=== PATIENT | male | born 1995 | race Caucasian/White ===

== ENCOUNTER 2017-02-21 20:18 | Emergency (ER) | payer BC ==
[~2017-02-21] VITALS: Ht 180.3 cm; Wt 145.1 kg
[2017-02-21 20:28] VITALS: BP_SYST 131
--- NOTE | 2017-02-21 20:44 | NUR ---
Patient to [facility]. Report given to Kenyatta ROBERTS.
--- NOTE | 2017-02-21 20:50 | NUR ---
Pt came into the ER in stable condition. Pt c/o cough x3 wks. Pt denies fever. Pt stated that he has been taking OTC meds but they have been ineffective. +congestion +productive cough -SOB. No acute distress noted at this time, will continue to monitor
[2017-02-21] MEDS ORDERED: LevALBUTEROL HCL 1.25 MG/0.5 ML *CONC.* VIAL.NEB (XOPENEX CONC.) INH ONE (21:00)
[2017-02-21 21:13] VITALS: BP_SYST 131
== END 2017-02-21 21:13 | disposition home or self-care (01) ==
LOC: SED 20:18
DX: J20.9 Acute bronchitis, unspecified (principal); R03.0 Elevated blood-pressure reading, without diagnosis of hypertension; J45.909 Unspecified asthma, uncomplicated
CPT/HCPCS: 99283

== ENCOUNTER 2017-08-12 21:47 | Emergency (ER) | payer BC ==
[~2017-08-12] VITALS: Ht 177.8 cm; Wt 145.1 kg
[2017-08-12 21:47] VITALS: BP_SYST 138
--- NOTE | 2017-08-12 21:47 | NUR ---
Patient to ER bed 5 to gown for evaluation. Side rails up. Report given to Izzy ROBERTS.
--- NOTE | 2017-08-12 22:30 | NUR ---
ER MD Gabriel at bedside examining patient.
--- NOTE | 2017-08-12 22:30 | NUR ---
Amanda stephenson in [facility] - 08/12/17 at 2308 by SDNABEL ISAAC Gabriel at bedside examining patient.
[2017-08-12] MEDS ORDERED: AMOXICILLIN/CLAVULANATE POTASSIUM 500 MG TABLET PO ONE (22:45)
[2017-08-12] MEDS ORDERED: DIPH-TET-PERTUS Vaccine 0.5 ML VIAL (ADACEL) I.M. ONE (22:45)
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
[2017-08-13 00:22] VITALS: BP_SYST 135
--- NOTE | 2017-08-13 00:22 | NUR ---
Patient given written and verbal discharge instructions and verbalizes understanding. ER MD discussed with patient the results and treatment provided. Patient in stable condition. ID arm band removed. Rx of Augmentin 875 mg given. Patient educated on pain management and to follow up with PMD. Pain Scale 0/10. Opportunity for questions provided and answered.
== END 2017-08-13 00:22 | disposition home or self-care (01) ==
LOC: SED 21:47
DX: S51.852A Open bite of left forearm, initial encounter (principal); R03.0 Elevated blood-pressure reading, without diagnosis of hypertension; J45.909 Unspecified asthma, uncomplicated; Z91.018 Allergy to other foods; W50.3XXA Accidental bite by another person, initial encounter; Y93.89 Activity, other specified; Y92.513 Shop (commercial) as the place of occurrence of the external cause; Y99.8 Other external cause status
CPT/HCPCS: 90715; 99284

== ENCOUNTER 2018-11-20 07:26 | Inpatient (IN) | payer BC ==
[~2018-11-20] VITALS: Ht 177.8 cm; Wt 170.6 kg
[2018-11-20 07:39] VITALS: BP_SYST 100
[2018-11-20] MEDS ORDERED: LevALBUTEROL HCL 1.25 MG/0.5 ML *CONC.* VIAL.NEB (XOPENEX CONC.) INH ONE ×2 (07:45→07:46)
[2018-11-20] MEDS ORDERED: NS 1000 ML IV.SOLN IV ONE (07:45)
[2018-11-20] MEDS ORDERED: IPRATROPIUM BROM 0.5 MG/2.5 ML VIAL.NEB (ATROVENT) IH ONE (07:45)
[2018-11-20] MEDS ORDERED: IPRATROPIUM BROM 0.5 MG/2.5 ML VIAL.NEB (ATROVENT) INH ONE (07:46)
[2018-11-20 08:03] LABS: BASOPHILS # (AUTO) 0.1 K/uL (0.0-0.2); BASOPHILS % (AUTO) 0.9 % (0.0-2.0); EOSINOPHILS # (AUTO) 0.3 K/uL (0.0-0.4); EOSINOPHILS % (AUTO) 1.8 % (0.0-4.0); LYMPHOCYTES # (AUTO) 0.6 K/uL (1.0-5.5); LYMPHOCYTES % (AUTO) 4.1 % (20.5-51.5); MONOCYTES # (AUTO) 1.1 K/uL (0.0-1.0); MONOCYTES % (AUTO) 7.4 % (1.7-9.3); NEUTROPHILS # (AUTO) 13.4 K/uL (1.8-7.7); NEUTROPHILS % (AUTO) 85.8 % (40.0-70.0); RED CELL DISTRIBUTION WIDTH 14.2 % (9.0-15.0)
[2018-11-20 08:19] LABS: WHITE BLOOD COUNT (AUTO) 15.5 K/uL (4.8-10.8)
[2018-11-20 08:24] LABS: CALCIUM 8.4 mg/dL (8.4-11.0); CREATININE 0.92 mg/dL (0.55-1.30); POTASSIUM 3.9 mmol/L (3.5-5.1)
[2018-11-20 08:30] LABS: ALBUMIN 3.3 g/dL (3.4-4.8); TOTAL BILIRUBIN 0.7 mg/dL (0.0-1.0)
[2018-11-20 08:39] LABS: PROTHROMBIN TIME 10.4 SECS (9.5-12.5)
[2018-11-20] MEDS ORDERED: cefTRIAXone 2 GM VIAL ONE ×2 (10:02→10:05)
[2018-11-20] MEDS ORDERED: DIPHENHYDRAMINE INJ 50 MG/ML VIAL IVP ONE (10:45)
[2018-11-20] MEDS ORDERED: VANCOMYCIN HCL 1,000 MG in NS 250 ML IV ONE (10:45)
[2018-11-20] MEDS ORDERED: BECL10.62 IH (10:55)
[2018-11-20] MEDS ORDERED: ALBMDI INH (10:55)
[2018-11-20] MEDS ORDERED: VANCOMYCIN HCL 1000 MG/VIAL IV ONE (11:04)
[2018-11-20 12:25] VITALS: BP_SYST 128
[2018-11-20] MEDS: ACETAMINOPHEN 325 MG TABLET PO PRN (13:08)
[2018-11-20] MEDS ORDERED: ACETAMINOPHEN 325 MG TABLET ONE (13:12)
[2018-11-20] MEDS ORDERED: NACL 0.9% 1,000 ML IV ONE (13:45)
[2018-11-20] MEDS ORDERED: NS 500 ML IV ONE (13:45)
[2018-11-20] MEDS ORDERED: AZITHROMYCIN 500 MG in NS 250 ML IV ONE (14:00)
[2018-11-20] MEDS ORDERED: DIPHENHYDRAMINE INJ 50 MG/ML VIAL IVP PRN (14:30)
[2018-11-20] MEDS ORDERED: methylPREDNISolone SOD SUCC/PF 62.5 MG/ML VIAL IVP ONE (14:30)
[2018-11-20 16:40] VITALS: BP_SYST 137
[2018-11-20] MEDS: IPRATROPIUM BROM 0.5 MG/2.5 ML VIAL.NEB (ATROVENT) INH SCH (19:23)
[2018-11-20] MEDS: ALBUTEROL SULFATE 0.083% 2.5 MG/3 ML VIAL.NEB INH SCH (19:23)
[2018-11-20 20:00] VITALS: BP_SYST 141
[2018-11-20 23:45] VITALS: BP_SYST 132
[2018-11-21] MEDS: IPRATROPIUM BROM 0.5 MG/2.5 ML VIAL.NEB (ATROVENT) INH SCH ×4 (01:12→16:35)
[2018-11-21] MEDS: ALBUTEROL SULFATE 0.083% 2.5 MG/3 ML VIAL.NEB INH SCH ×4 (01:12→16:34)
[2018-11-21 06:55] LABS: MONOCYTES # (AUTO) 1.1 K/uL (0.0-1.0)
[2018-11-21 07:20] LABS: ALBUMIN 2.9 g/dL (3.4-4.8); CALCIUM 8.5 mg/dL (8.4-11.0); CREATININE 0.76 mg/dL (0.55-1.30); POTASSIUM 3.9 mmol/L (3.5-5.1); THYROID STIMULATING HORMONE 0.13 uIu/mL (0.34-4.82); TOTAL BILIRUBIN 0.5 mg/dL (0.0-1.0)
[2018-11-21 07:58] VITALS: BP_SYST 102
[2018-11-21] MEDS: AZITHROMYCIN 500 MG in NS 250 ML IV SCH (08:49)
[2018-11-21 08:52] LABS: BASOPHILS % (AUTO) 0.1 % (0.0-2.0); EOSINOPHILS % (AUTO) 0.1 % (0.0-4.0); HEMATOCRIT 40.1 % (36-54); HEMOGLOBIN 12.9 g/dL (14.0-18.0); LYMPHOCYTES # (AUTO) 0.5 K/uL (1.0-5.5); LYMPHOCYTES % (AUTO) 3.7 % (20.5-51.5); MEAN CORPUSCULAR HEMOGLOBIN 27 pg (27-31); MEAN CORPUSCULAR HGB CONC 32 % (32-36); MEAN CORPUSCULAR VOLUME 83 fL (79.0-98.0); MONOCYTES % (AUTO) 7.7 % (1.7-9.3); NEUTROPHILS # (AUTO) 12.9 K/uL (1.8-7.7); NEUTROPHILS % (AUTO) 88.4 % (40.0-70.0); PLATELET COUNT (AUTO) 271 K/uL (130-430); RED BLOOD CELL COUNT(AUTO) 4.84 MIL/uL (4.2-6.2); RED CELL DISTRIBUTION WIDTH 14.3 % (9.0-15.0); WHITE BLOOD COUNT (AUTO) 14.5 K/uL (4.8-10.8)
[2018-11-21 10:46] LABS: HEMATOCRIT 46.1 % (36-54); HEMOGLOBIN 14.6 g/dL (14.0-18.0); MEAN CORPUSCULAR VOLUME 86 fL (79.0-98.0); RED BLOOD CELL COUNT(AUTO) 5.37 MIL/uL (4.2-6.2)
[2018-11-21 10:47] LABS: MEAN CORPUSCULAR HEMOGLOBIN 27 pg (27-31); MEAN CORPUSCULAR HGB CONC 32 % (32-36); PLATELET COUNT (AUTO) 307 K/uL (130-430)
[2018-11-21 10:52] VITALS: BP_SYST 114
[2018-11-21] MEDS: LEVOFLOXACIN 500 MG/D5W 100 ML IV SCH (11:05)
[2018-11-21] MEDS: ACETAMINOPHEN 325 MG TABLET PO PRN ×2 (11:05→17:42)
[2018-11-21] MEDS ORDERED: NS 1000 ML IV.SOLN IV ONE (15:00)
[2018-11-21] MEDS ORDERED: PREDNISONE 20 MG TABLET PO ONE (15:15)
[2018-11-21 16:19] VITALS: BP_SYST 124
[2018-11-21] MEDS: BUDESONIDE 0.5 MG/2 ML AMPUL.NEB INH SCH ×2 (16:23→19:56)
[2018-11-21] MEDS: IPRATROPIUM BROM 0.5 MG/2.5 ML VIAL.NEB (ATROVENT) INH PRN (19:55)
[2018-11-21] MEDS: ALBUTEROL SULFATE 0.083% 2.5 MG/3 ML VIAL.NEB INH PRN (19:56)
[2018-11-21 20:24] VITALS: BP_SYST 106
[2018-11-21 23:37] VITALS: BP_SYST 116
[2018-11-22] MEDS: ALBUTEROL SULFATE 0.083% 2.5 MG/3 ML VIAL.NEB INH SCH ×4 (01:55→19:00)
[2018-11-22] MEDS: IPRATROPIUM BROM 0.5 MG/2.5 ML VIAL.NEB (ATROVENT) INH SCH ×4 (01:55→19:00)
[2018-11-22] MEDS: BUDESONIDE 0.5 MG/2 ML AMPUL.NEB INH SCH ×2 (06:12→22:01)
[2018-11-22 07:00] LABS: CALCIUM 8.4 mg/dL (8.4-11.0); CREATININE 0.83 mg/dL (0.55-1.30); POTASSIUM 3.6 mmol/L (3.5-5.1)
[2018-11-22 07:18] LABS: ALBUMIN 2.7 g/dL (3.4-4.8); TOTAL BILIRUBIN 0.5 mg/dL (0.0-1.0)
[2018-11-22 07:51] VITALS: BP_SYST 106
[2018-11-22 08:36] LABS: HEMATOCRIT 37.4 % (36-54); HEMOGLOBIN 12.2 g/dL (14.0-18.0); MEAN CORPUSCULAR HEMOGLOBIN 27 pg (27-31); MEAN CORPUSCULAR HGB CONC 33 % (32-36); MEAN CORPUSCULAR VOLUME 83 fL (79.0-98.0); PLATELET COUNT (AUTO) 214 K/uL (130-430); RED CELL DISTRIBUTION WIDTH 15.2 % (9.0-15.0)
[2018-11-22] MEDS: PREDNISONE 20 MG TABLET PO SCH (08:39)
[2018-11-22] MEDS: AZITHROMYCIN 500 MG in NS 250 ML IV SCH (08:40)
[2018-11-22] MEDS: LEVOFLOXACIN 500 MG/D5W 100 ML IV SCH (09:35)
[2018-11-22 09:39] LABS: BASOPHILS % (MANUAL) 0 % (0-2); EOSINOPHILS % (MANUAL) 0 % (0-7); LYMPHOCYTES % (MANUAL) 11 % (20-46); MONOCYTES % (MANUAL) 7 % (0-11)
[2018-11-22] MEDS: ACETAMINOPHEN 325 MG TABLET PO PRN ×2 (10:07→20:26)
[2018-11-22 12:48] VITALS: BP_SYST 105
[2018-11-22 17:21] VITALS: BP_SYST 93
[2018-11-22] MEDS: ALBUTEROL SULFATE 0.083% 2.5 MG/3 ML VIAL.NEB INH PRN ×2 (18:07→22:01)
[2018-11-22] MEDS: IPRATROPIUM BROM 0.5 MG/2.5 ML VIAL.NEB (ATROVENT) INH PRN ×2 (18:07→22:01)
[2018-11-22 20:20] VITALS: BP_SYST 117
[2018-11-22] MEDS: PROMETHAZINE-DM 6.25 MG-15 MG/5 ML UDC PO PRN (20:26)
[2018-11-22 23:56] VITALS: BP_SYST 108
[2018-11-23] VITALS: BP_SYST 131
[2018-11-23 01:16] VITALS: BP_SYST 104
[2018-11-23] MEDS: ALBUTEROL SULFATE 0.083% 2.5 MG/3 ML VIAL.NEB INH SCH ×4 (01:37→19:58)
[2018-11-23] MEDS: IPRATROPIUM BROM 0.5 MG/2.5 ML VIAL.NEB (ATROVENT) INH SCH ×4 (01:38→19:58)
[2018-11-23] MEDS: ALBUTEROL SULFATE 0.083% 2.5 MG/3 ML VIAL.NEB INH PRN (03:41)
[2018-11-23] MEDS: IPRATROPIUM BROM 0.5 MG/2.5 ML VIAL.NEB (ATROVENT) INH PRN (03:41)
[2018-11-23] MEDS: PROMETHAZINE-DM 6.25 MG-15 MG/5 ML UDC PO PRN (03:43)
[2018-11-23] MEDS: ACETAMINOPHEN 325 MG TABLET PO PRN (06:33)
[2018-11-23 07:30] VITALS: BP_SYST 112
[2018-11-23] MEDS: BUDESONIDE 0.5 MG/2 ML AMPUL.NEB INH SCH ×2 (07:34→19:58)
[2018-11-23] MEDS: LEVOFLOXACIN 500 MG/D5W 100 ML IV SCH (08:38)
[2018-11-23] MEDS: PREDNISONE 20 MG TABLET PO SCH (08:38)
[2018-11-23] MEDS ORDERED: methylPREDNISolone SOD SUCC 40 MG/ML VIAL IVP ONE (09:15)
[2018-11-23 11:07] VITALS: BP_SYST 119
[2018-11-23 16:49] VITALS: BP_SYST 123
[2018-11-23] MEDS: MONTELUKAST 10 MG TABLET PO SCH (16:58)
[2018-11-23] MEDS: methylPREDNISolone SOD SUCC 40 MG/ML VIAL IVP SCH (16:59)
[2018-11-23 20:12] VITALS: BP_SYST 103
[2018-11-24 00:30] VITALS: BP_SYST 131
[2018-11-24] MEDS: ALBUTEROL SULFATE 0.083% 2.5 MG/3 ML VIAL.NEB INH SCH ×4 (03:05→19:35)
[2018-11-24] MEDS: IPRATROPIUM BROM 0.5 MG/2.5 ML VIAL.NEB (ATROVENT) INH SCH ×4 (03:05→19:35)
[2018-11-24] MEDS: methylPREDNISolone SOD SUCC 40 MG/ML VIAL IVP SCH ×2 (06:13→18:05)
[2018-11-24 08:00] VITALS: BP_SYST 114
[2018-11-24] MEDS: BUDESONIDE 0.5 MG/2 ML AMPUL.NEB INH SCH ×2 (08:12→19:35)
[2018-11-24] MEDS: LEVOFLOXACIN 500 MG/D5W 100 ML IV SCH (08:41)
[2018-11-24 12:38] VITALS: BP_SYST 124
[2018-11-24 16:16] VITALS: BP_SYST 110
[2018-11-24] MEDS: MONTELUKAST 10 MG TABLET PO SCH (18:05)
[2018-11-24 20:00] VITALS: BP_SYST 123
[2018-11-25] MEDS: IPRATROPIUM BROM 0.5 MG/2.5 ML VIAL.NEB (ATROVENT) INH SCH ×3 (00:10→19:40)
[2018-11-25] MEDS: ALBUTEROL SULFATE 0.083% 2.5 MG/3 ML VIAL.NEB INH SCH ×3 (00:10→19:40)
[2018-11-25 00:29] VITALS: BP_SYST 109
[2018-11-25] MEDS: methylPREDNISolone SOD SUCC 40 MG/ML VIAL IVP SCH ×2 (05:08→17:53)
[2018-11-25 08:04] VITALS: BP_SYST 144
[2018-11-25] MEDS: BUDESONIDE 0.5 MG/2 ML AMPUL.NEB INH SCH ×2 (08:14→20:06)
[2018-11-25] MEDS: LEVOFLOXACIN 500 MG/D5W 100 ML IV SCH (10:19)
[2018-11-25 12:18] VITALS: BP_SYST 100
[2018-11-25 16:09] VITALS: BP_SYST 127
[2018-11-25] MEDS: MONTELUKAST 10 MG TABLET PO SCH (17:53)
[2018-11-25 19:00] VITALS: BP_SYST 106
[2018-11-25 20:00] VITALS: BP_SYST 106
[2018-11-26 00:44] VITALS: BP_SYST 119
[2018-11-26] MEDS: ALBUTEROL SULFATE 0.083% 2.5 MG/3 ML VIAL.NEB INH SCH ×3 (01:17→13:25)
[2018-11-26] MEDS: IPRATROPIUM BROM 0.5 MG/2.5 ML VIAL.NEB (ATROVENT) INH SCH ×3 (01:18→13:25)
[2018-11-26] MEDS: BUDESONIDE 0.5 MG/2 ML AMPUL.NEB INH SCH (07:10)
[2018-11-26 08:00] VITALS: BP_SYST 117
[2018-11-26] MEDS: methylPREDNISolone SOD SUCC 40 MG/ML VIAL IVP SCH (08:46)
[2018-11-26] MEDS: LEVOFLOXACIN 500 MG/D5W 100 ML IV SCH (11:01)
[2018-11-26] MEDS ORDERED: BUDE0.5A IH (11:17)
[2018-11-26] MEDS ORDERED: LEVO250T2 PO (11:20)
[2018-11-26] MEDS ORDERED: MEDROL PACK PO (11:54)
[2018-11-26] MEDS ORDERED: MONT10TA25 PO (11:55)
[2018-11-26 12:00] VITALS: BP_SYST 100
[2018-11-26 12:20] VITALS: BP_SYST 106
[2018-11-28 10:47] LABS: MYCOPLASMA PNEUMONIAE IgG 849 U/mL (0-99); MYCOPLASMA PNEUMONIAE IgM 6880 U/mL (0-769)
== END 2018-11-26 13:50 | disposition home or self-care (01) | DRG 871 ==
LOC: SED 07:26 → STU 10:52 → SMU 11-24 11:19
PROVIDERS: ADMIT Internal Medicine Hospice and Palliative Medicine; ATTEND Internal Medicine Hospice and Palliative Medicine
DX: A41.9 Sepsis, unspecified organism (principal); J96.01 Acute respiratory failure with hypoxia; J12.9 Viral pneumonia, unspecified; R65.21 Severe sepsis with septic shock; F17.210 Nicotine dependence, cigarettes, uncomplicated; E66.01 Morbid (severe) obesity due to excess calories; J45.901 Unspecified asthma with (acute) exacerbation; Z68.43 Body mass index [BMI] 50.0-59.9, adult; Z91.018 Allergy to other foods; Z88.1 Allergy status to other antibiotic agents
CPT/HCPCS: 36415; 36600; 71045; 71250-TC; 80053; 82803-TC; 83605; 83880; 84443-TC; 84484; 85007; 85025; 85027; 85379; 85610-TC; 85730-TC; 86710; 86738; 87040-TC; 87081; 93005; 93306; 94640; 94760; 96361; 96365; 96366; 96367; 96375; 99285; G0378; J0456; J0696; J1030; J1200; J1956; J2930; J3370; J7030; J7040; J7050; J7512; J7612; J7613; J7626

== ENCOUNTER 2020-01-13 02:55 | Inpatient (IN) | payer BC ==
[~2020-01-13] VITALS: Ht 177.8 cm; Wt 162.8 kg
[~2020-01-13 02:55] MED LIST: ALBMDI INH; BUDE0.5A IH; LEVO250T2 PO; MEDROL PACK PO; MONT10TA25 PO
[2020-01-13 03:03] VITALS: BP_SYST 148
--- NOTE | 2020-01-13 03:07 | NUR ---
Patient triaged and placed in waiting room. VSS and patient appears in no acute distress at this time. Accompanied by self, awaiting available bed, and MD notified of need for MSE.
--- NOTE | 2020-01-13 04:40 | NUR ---
Patient to ER bed 5 to gown for evaluation. Side rails up.
--- NOTE | 2020-01-13 04:42 | NUR ---
Patient complains pain to right lung since yesterday around 2pm. Pt states he feels a sharp pain to right chest and radiates to back. Pt becomes SOB with movement. Per pt, he had been diagnosed with Pneumonia to the right lung in 2018 and states pain is similar. Mild wheezing heard upon auscultation to Right lung. No other injuries/complaints per patient or noted.
--- NOTE | 2020-01-13 04:42 | NUR ---
Patient states he had been coughing since yesterday but did not feel pain until later on in the day.
--- NOTE | 2020-01-13 04:59 | NUR ---
ER Dr. Wayne at bedside examining patient.
[2020-01-13] MEDS ORDERED: methylPREDNISolone SOD SUCC/PF 62.5 MG/ML VIAL IVP ONE (05:15)
[2020-01-13] MEDS ORDERED: IPRATROPIUM/ALBUTEROL SULFATE 3 ML AMPUL.NEB (DUONEB) INH ONE ×2 (05:15→06:15)
[2020-01-13] MEDS ORDERED: OSELTAMIVIR PHOSPHATE 75 MG CAPSULE PO ONE (05:15)
[2020-01-13] MEDS ORDERED: NACL 0.9% 1,000 ML IV ONE (05:30)
[2020-01-13] MEDS ORDERED: ACETAMINOPHEN 500 MG TABLET PO ONE (05:30)
[2020-01-13] MEDS ORDERED: PREDNISONE 20 MG TABLET PO ONE (05:45)
[2020-01-13] MEDS ORDERED: LEVOFLOXACIN 500 MG TABLET PO ONE (05:45)
[2020-01-13 06:30] LABS: BASOPHILS # (AUTO) 0.1 K/uL (0.0-0.2); BASOPHILS % (AUTO) 0.9 % (0.0-2.0); EOSINOPHILS # (AUTO) 0.8 K/uL (0.0-0.4); EOSINOPHILS % (AUTO) 5.4 % (0.0-4.0); HEMATOCRIT 39.4 % (36-54); HEMOGLOBIN 12.9 g/dL (14.0-18.0); LYMPHOCYTES # (AUTO) 1.9 K/uL (1.0-5.5); LYMPHOCYTES % (AUTO) 13.1 % (20.5-51.5); MEAN CORPUSCULAR HEMOGLOBIN 28 pg (27-31); MEAN CORPUSCULAR HGB CONC 33 % (32-36); MEAN CORPUSCULAR VOLUME 84 fL (79.0-98.0); MONOCYTES # (AUTO) 0.9 K/uL (0.0-1.0); MONOCYTES % (AUTO) 6.5 % (1.7-9.3); NEUTROPHILS # (AUTO) 10.5 K/uL (1.8-7.7); NEUTROPHILS % (AUTO) 74.1 % (40.0-70.0); PLATELET COUNT (AUTO) 330 K/uL (130-430); RED BLOOD CELL COUNT(AUTO) 4.67 MIL/uL (4.2-6.2); RED CELL DISTRIBUTION WIDTH 15.9 % (9.0-15.0); WHITE BLOOD COUNT (AUTO) 14.2 K/uL (4.8-10.8)
--- NOTE | 2020-01-13 06:32 | NUR ---
patient states he does not take any medication prescribed by a physician. He only uses a nebulizer but lost it a while back.
[2020-01-13 06:40] LABS: ANION GAP 8 (5-15); CALCIUM 8.9 mg/dL (8.4-11.0); CHLORIDE 103 mmol/L (98-107); CREATININE 0.73 mg/dL (0.55-1.30); GLUCOSE 117 mg/dL (70-99); POTASSIUM 4.1 mmol/L (3.5-5.1); SODIUM SERUM 137 mmol/L (136-145); UREA NITROGEN, BLOOD 9 mg/dL (8-21)
--- NOTE | 2020-01-13 06:45 | NUR ---
Patient will be admitted to care of Dr. Pace. Admitted to Telemetry unit. Belongings list completed. Complete and up to date summary report printed. SBAR report to be given at bedside with opportunity for questions.
--- NOTE | 2020-01-13 06:45 | NUR ---
Awaiting bed assignment.
[2020-01-13 06:49] LABS: ALANINE AMINOTRANSFERASE 36 U/L (12-78); ALBUMIN 3.3 g/dL (3.4-4.8); ASPARTATE AMINOTRANSFERASE 16 U/L (10-37); TOTAL BILIRUBIN 0.3 mg/dL (0.0-1.0)
[2020-01-13 06:54] LABS: GFR AFRICAN AMERICAN 170 mL/min (>90)
--- NOTE | 2020-01-13 06:56 | NUR ---
ER Dr. Church at bedside examining patient.
--- NOTE | 2020-01-13 07:13 | NUR ---
Report given to ARMANDO Prajapati. All care endorsed.
[2020-01-13] MEDS ORDERED: ALBUTEROL SULFATE 0.083% 2.5 MG/3 ML VIAL.NEB INH PRN (07:15)
[2020-01-13] MEDS ORDERED: HYDROcodone/ACETAMIN 5-325 MG TAB (NORCO/ VICODIN) PO PRN (07:15)
[2020-01-13] MEDS ORDERED: ACETAMINOPHEN 325 MG TABLET PO PRN (07:15)
--- NOTE | 2020-01-13 07:16 | NUR ---
REPORT RECEIVED FROM FAM ROBERTS. CURRENTLY WAITING FOR A TELE BED
--- NOTE | 2020-01-13 08:04 | NUR ---
Patient will be admitted to care of Dr. Boss. Admitted to tele unit. Will go to room 110-a. Belongings list completed. Complete and up to date summary report printed. SBAR report to be given at bedside with opportunity for questions.bedside report given. Iv on the RAC 18g patent and infusing well.
--- NOTE | 2020-01-13 08:10 | NUR ---
OPENING NOTES RECEIVED PT FROM ER, RECEIVED REPORT. PT ABLE TO AMBULATE WITH STEADY GAIT. NO ACUTE DISTRESS NOTED. NONLABORED BREATHING NOTED ON ROOM AIR 02 SAT AT 94%. IV LINE INTACT AND PATENT, NO SIGNS OF INFILTRATION NOTED. FAMILY AT BEDSIDE. ALL NEEDS MET. CALL LIGHT IN REACH. FALL AND ASPIRATION PRECAUTIONS IN PLACE. CONTINUE TO MONITOR SEEN BY DR. RIGGS AT BEDSIDE.
[2020-01-13 08:33] VITALS: BP_SYST 111
[2020-01-13] MEDS ORDERED: ENOXAPARIN SODIUM 40 MG/0.4 ML SYRINGE SUBCUT ONE (09:00)
[2020-01-13] MEDS ORDERED: FAMOTIDINE 20 MG TABLET PO ONE (09:00)
[2020-01-13 09:25] VITALS: BP_SYST 145
--- NOTE | 2020-01-13 10:00 | NUR ---
ROUNDS PT AWAKE, ALERT, AND ORIENTED. NO ACUTE DISTRESS NOTED. ALL NEEDS MET. CALL LIGHT IN REACH. FALL AND ASPIRATION PRECAUTIONS IN PLACE. CONTINUE TO MONITOR.
[2020-01-13] MEDS: IPRATROPIUM BROM 0.5 MG/2.5 ML VIAL.NEB (ATROVENT) INH SCH ×4 (10:49→23:22)
[2020-01-13] MEDS: ALBUTEROL SULFATE 0.083% 2.5 MG/3 ML VIAL.NEB INH SCH ×4 (10:49→23:22)
--- NOTE | 2020-01-13 11:29 | NUR ---
ROUTINE MEDS ROUTINE MEDS ADMINISTERED ORDERED PER MD, EDUCATION GIVEN, TOLERATED WELL. NO ACUTE DISTRESS NOTED. ALL NEEDS MET. CALL LIGHT IN REACH. FALL AND ASPIRATION PRECAUTIONS IN PLACE. CONTINUE TO MONITOR.
[2020-01-13] MEDS: LEVOFLOXACIN 250 MG/D5W 50 ML IV SCH (11:41)
[2020-01-13] MEDS: methylPREDNISolone SOD SUCC/PF 62.5 MG/ML VIAL IVP SCH ×2 (11:42→17:10)
[2020-01-13 12:00] VITALS: BP_SYST 127
--- NOTE | 2020-01-13 13:00 | NUR ---
ROUNDS PT RESTING IN BED, CHEST RISE AND FALL NOTED. NONLABORED BREATHING ON ROOM AIR. CONTINUE TO MONITOR. CALL LIGHT IN REACH.
[2020-01-13 16:00] VITALS: BP_SYST 124
[2020-01-13] MEDS: MONTELUKAST 10 MG TABLET PO SCH (17:10)
--- NOTE | 2020-01-13 17:10 | NUR ---
ROUTINE MEDS ROUTINE MEDS ADMINISTERED ORDERED PER MD, EDUCATION GIVEN, TOLERATED WELL. NO ACUTE DISTRESS NOTED. ALL NEEDS MET. CALL LIGHT IN REACH. CONTINUE TO MONITOR.
--- NOTE | 2020-01-13 18:45 | NUR ---
CLOSING NOTES PT AWAKE, ALERT, AND ORIENTED IN BED. FRIENDS AT BEDSIDE. NO ACUTE DISTRESS NOTED. NONLABORED BREATHING NOTED ON ROOM AIR. IV LINE INTACT AND PATENT, NO SIGNS OF INFILTRATION NOTED. ALL NEEDS MET. CALL LIGHT IN REACH. FALL AND ASPIRATION PRECAUTIONS IN PLACE. WILL ENDORSE TO NOC NURSE.
[2020-01-13 20:00] VITALS: BP_SYST 113
--- NOTE | 2020-01-13 20:00 | NUR ---
REPORT RECIEVED @ START OF SHIFT, RESPIRATIONS EVEN AND UNLABORED, O2 2L/M PER NC, ALERT WITH CONFUSION,, BEDREST,22G S/L PATENT/INTACT IN LAC, 20G S/L PATENT /INTACT IN LFA,SACRAL DRESSING C/D/I, TURNED AND REPOSITIONED Q2 HRS, TOLERATES NEBULIZER TX WELL, NON PRODUCTIVE COUGH NOTED,, PATIENT REFUSED TO EAT SUPPER TRAY ONLY A FEW BITES OF BREAD, WILL TRY LATER TO FEED,SR'S UP X'S 3, CALL LIGHT WITHIN REACH, BED IN LOW POSITION, WILL CONTINUE TO MONITOR, Addendum: 01/14/20 at 0324 by Twenty six sheet rocker DATA CHARTED IN ERROR
--- NOTE | 2020-01-13 20:00 | NUR ---
RECEIVED REPORT @ START OF SHIFT, A/O/X/4, RESPIRATIONS EVEN AND UNLABORED, ROOM AIR, NSR ON TELE MONITOR,SKIN INTACT, TOLERATING PO AND SOLID FOOD 100%, SOB NOTED ON EXERTION, NON -PRODUCTIVE COUGH, DENIES PAIN, S/L PATENT & INTACT IN RFA #18G BRP, VOIDING CLEAR YELLOW URINE, SR'S UP CX'S 2, CALL LIGHT WITHIN REACH & BED IN LOW POSITION.
[2020-01-14] VITALS: BP_SYST 118
--- NOTE | 2020-01-14 | NUR ---
HARSH FEED PATIENT SUPPER TRAY AND CONSUMED 75%, WILL DO BLOOD SUGAR LATER, RESTING QUIETLY IN BED WITH EYES CLOSED, EASILY AROUSED. Addendum: 01/14/20 at 0323 by Kevon six Donald ROBERTS DATA CHARTED IN ERROR
--- NOTE | 2020-01-14 | NUR ---
CONTINUES TO REST QUIETLY IN BED WITH EYES OPEN WATCHING TV, DENIES PAIN, TOLERATING BREATHING TX'S WELL, CONTINUES TO HAVE HACKING DRY COUGH.
[2020-01-14] MEDS: methylPREDNISolone SOD SUCC/PF 62.5 MG/ML VIAL IVP SCH ×4 (02:13→17:29)
[2020-01-14] MEDS: IPRATROPIUM BROM 0.5 MG/2.5 ML VIAL.NEB (ATROVENT) INH SCH ×6 (03:16→23:50)
[2020-01-14] MEDS: ALBUTEROL SULFATE 0.083% 2.5 MG/3 ML VIAL.NEB INH SCH ×6 (03:16→23:50)
--- NOTE | 2020-01-14 04:00 | NUR ---
DENIES PAIN, RESTING QUIETLY IN BED, NO ACUTE RESP/CARDIAC DISTRESS NOTED, REMAINS NSR ON TELE MONITOR.
[2020-01-14 07:13] LABS: BASOPHILS % (AUTO) 0.1 % (0.0-2.0); HEMATOCRIT 40.7 % (36-54); HEMOGLOBIN 13.3 g/dL (14.0-18.0); LYMPHOCYTES # (AUTO) 0.6 K/uL (1.0-5.5); LYMPHOCYTES % (AUTO) 3.8 % (20.5-51.5); MEAN CORPUSCULAR HEMOGLOBIN 28 pg (27-31); MEAN CORPUSCULAR HGB CONC 33 % (32-36); MEAN CORPUSCULAR VOLUME 84 fL (79.0-98.0); MONOCYTES # (AUTO) 0.3 K/uL (0.0-1.0); NEUTROPHILS # (AUTO) 14.7 K/uL (1.8-7.7); NEUTROPHILS % (AUTO) 94.1 % (40.0-70.0); PLATELET COUNT (AUTO) 358 K/uL (130-430); RED BLOOD CELL COUNT(AUTO) 4.83 MIL/uL (4.2-6.2); RED CELL DISTRIBUTION WIDTH 15.6 % (9.0-15.0); WHITE BLOOD COUNT (AUTO) 15.7 K/uL (4.8-10.8)
--- NOTE | 2020-01-14 07:15 | NUR ---
OPENING NOTES PT AWAKE ALERT AND ORIENTED. NONLABORED BREATHING NOTED ON ROOM AIR. O2 AT 92%. IV LINE INTACT AND PATENT, NO SIGNS OF INFILTRATION NOTED. PATIENT DENIES PAIN, DENIES SHORTNESS OF BREATH. ALL NEEDS MET. CALL LIGHT IN REACH. FALL AND ASPIRATION PRECAUTIONS IN PLACE. CONTINUE TO MONITOR.
[2020-01-14 07:39] LABS: ALBUMIN 3.5 g/dL (3.4-4.8); CALCIUM 9.4 mg/dL (8.4-11.0); CREATININE 0.67 mg/dL (0.55-1.30); POTASSIUM 3.8 mmol/L (3.5-5.1); TOTAL BILIRUBIN 0.3 mg/dL (0.0-1.0)
[2020-01-14 08:00] VITALS: BP_SYST 133
[2020-01-14] MEDS: FAMOTIDINE 20 MG TABLET PO SCH (09:18)
--- NOTE | 2020-01-14 09:18 | NUR ---
ROUTINE MEDS ROUTINE MEDS ADMINISTERED ORDERED, EDUCATION GIVEN, TOLERATED WELL. NO ACUTE DISTRESS NOTED. ALL NEEDS MET. CALL LIGHT IN REACH. CONTINUE TO MONITOR.
[2020-01-14] MEDS: ENOXAPARIN SODIUM 40 MG/0.4 ML SYRINGE SUBCUT SCH (09:20)
[2020-01-14] MEDS ORDERED: BUDESONIDE 0.5 MG/2 ML AMPUL.NEB INH ONE (11:30)
[2020-01-14] MEDS: LEVOFLOXACIN 250 MG/D5W 50 ML IV SCH (11:33)
--- NOTE | 2020-01-14 11:33 | NUR ---
ROUTINE MEDS ROUTINE MEDS ADMINISTERED ORDERED PER MD, EDUCATION GIVEN, TOLERATED WELL. NO ACUTE DISTRESS NOTED. ALL NEEDS MET. CALL LIGHT IN REACH. CONTINUE TO MONITOR.
[2020-01-14 12:00] VITALS: BP_SYST 130
--- NOTE | 2020-01-14 12:00 | NUR ---
VITAL SIGNS TAKEN AND GAVE LUNCH TRAY. PT EATING LUNCH SITTING AT EDGE OF THE BED, TOLERATING WELL. CALL LIGHT IN REACH. CONTINUE TO MONITOR. Addendum: 01/14/20 at 1806 by Tiffanie Washington RN VITAL SIGNS STABLE.
--- NOTE | 2020-01-14 14:00 | NUR ---
ROUNDS PT RESTING IN BED, CHEST RISE AND FALL NOTED. NONLABORED BREATHING ON ROOM, NO ACUTE DISTRESS NOTED. ALL NEEDS MET. CALL LIGHT IN REACH. CONTINUE TO MONITOR.
[2020-01-14 16:00] VITALS: BP_SYST 122
--- NOTE | 2020-01-14 16:00 | NUR ---
ROUNDS PT USING THE BATHROOM, TOLERATED WELL. ALL NEEDS MET. CALL LIGHT IN REACH. CONTINUE TO MONITOR.
[2020-01-14] MEDS: MONTELUKAST 10 MG TABLET PO SCH (17:29)
--- NOTE | 2020-01-14 17:29 | NUR ---
ROUTINE MEDS ROUTINE MEDS ADMINISTERED ORDERED PER MD, EDUCATION GIVEN, TOLERATED WELL. NO ACUTE DISTRESS NOTED. HOB ELEVATED. CALL LIGHT IN REACH. CONTINUE TO MONITOR.
--- NOTE | 2020-01-14 18:35 | NUR ---
CLOSING NOTES PT AWAKE, ALERT, AND ORIENTED IN BED. IV LINE INTACT AND PATENT, NO SIGNS OF INFILTRATION NOTED. NO ACUTE DISTRESS NOTED. NONLABORED BREATHING NOTED ON ROOM AIR. BED LOCKED AND IN LOWEST POSITION. ALL NEEDS MET. CALL LIGHT IN REACH. FALL AND ASPIRATION PRECAUTIONS IN PLACE. WILL ENDORSE TO NOC NURSE.
--- NOTE | 2020-01-14 19:24 | NUR ---
RN ROUNDS Received report from day nurse, patient aox4, on room air, no sob noted, denies any pain at this time, plan of care discussed, patient verbalized understanding, oriented to use call light for nurse assistance, safety measures in place, will monitor.
[2020-01-14] MEDS: BUDESONIDE 0.5 MG/2 ML AMPUL.NEB INH SCH (19:53)
--- NOTE | 2020-01-14 20:00 | NUR ---
RECEIVED REPORT @ START OF SHIFT, A/O/X/4, RESPIRATIONS EVEN AND UNLABORED, ROOM AIR,NSR ON TELE MONITOR, RAC S/L DISLODGED AND RE-STARTED IN LEFT HAND # 22G, BRP,DENIES PAIN, REQUESTED SLEEPING PILL, SPOKE WITH CLINICAL DATA PROGRAMMER FOR PATIENT AND RECEIVED ORDER FOR [place], SR'S UP X'S 2, CALL LIGHT WITHIN REACH, BED IN LOW POSITION.
[2020-01-14 20:37] VITALS: BP_SYST 108
--- NOTE | 2020-01-14 23:13 | NUR ---
CONSULT DR WEBB ALREADY SAW PT.
--- NOTE | 2020-01-14 23:51 | NUR ---
Rosalie Churhc s/w Vince
--- NOTE | 2020-01-15 | NUR ---
RESTING QUIETLY IN BED WITH YES OPEN, HAS DRY HACKING COUGH,NO NOTED CHANGES IN PRESENT CONDITION, WILL CONTINUE TO MONITOR.
[2020-01-15] MEDS: methylPREDNISolone SOD SUCC/PF 62.5 MG/ML VIAL IVP SCH ×4 (00:32→23:00)
[2020-01-15] MEDS: ZOLPIDEM TARTRATE 5 MG TABLET PO PRN (00:32)
[2020-01-15] MEDS: ALBUTEROL SULFATE 0.083% 2.5 MG/3 ML VIAL.NEB INH SCH ×6 (03:48→23:22)
[2020-01-15] MEDS: IPRATROPIUM BROM 0.5 MG/2.5 ML VIAL.NEB (ATROVENT) INH SCH ×6 (03:48→23:22)
[2020-01-15 04:00] VITALS: BP_SYST 124
--- NOTE | 2020-01-15 04:00 | NUR ---
DENIES PAIN , BREATHING TX'S CONTINUED, WILL CONTINUE TO MONITOR.
[2020-01-15] MEDS: BUDESONIDE 0.5 MG/2 ML AMPUL.NEB INH SCH ×2 (07:57→20:25)
[2020-01-15 08:30] VITALS: BP_SYST 115
[2020-01-15] MEDS: ENOXAPARIN SODIUM 40 MG/0.4 ML SYRINGE SUBCUT SCH (09:00)
[2020-01-15] MEDS: FAMOTIDINE 20 MG TABLET PO SCH (09:00)
--- NOTE | 2020-01-15 09:01 | NUR ---
Routine Patient resting comfortably in bed with no complaint of pain at this time. Scheduled medications given per order. Patient stable.
[2020-01-15] MEDS: LEVOFLOXACIN 250 MG/D5W 50 ML IV SCH (11:24)
--- NOTE | 2020-01-15 11:41 | NUR ---
DC Planning: updated and faxed clinical info to [facility] fax# [phone], tel # [phone].
[2020-01-15 12:15] VITALS: BP_SYST 133
[2020-01-15] MEDS ORDERED: methylPREDNISolone SOD SUCC/PF 62.5 MG/ML VIAL IVP SCH (13:45)
[2020-01-15 16:20] VITALS: BP_SYST 134
--- NOTE | 2020-01-15 17:06 | NUR ---
Dietitian Recommendations * Recommend continuing regular diet LP, RD Please refer to Nutrition Assessment for details. Addendum: 01/15/20 at [address] Amended: Links added.
[2020-01-15] MEDS: MONTELUKAST 10 MG TABLET PO SCH (18:35)
--- NOTE | 2020-01-15 18:38 | NUR ---
Routine Scheduled medication given per order. Patient resting calmly in bed with family member at bedside. Patient stable throughout shift.
[2020-01-15 20:00] VITALS: BP_SYST 126
[2020-01-16] MEDS: ZOLPIDEM TARTRATE 5 MG TABLET PO PRN (00:53)
[2020-01-16 01:08] VITALS: BP_SYST 127
[2020-01-16] MEDS: IPRATROPIUM BROM 0.5 MG/2.5 ML VIAL.NEB (ATROVENT) INH SCH ×6 (02:19→23:52)
[2020-01-16] MEDS: ALBUTEROL SULFATE 0.083% 2.5 MG/3 ML VIAL.NEB INH SCH ×6 (02:19→23:52)
--- NOTE | 2020-01-16 06:00 | NUR ---
RECEIVED REPORT @ START OF SHIFT, RESPIRATION EVEN AND UNLABORED, ROOM AIR, SL PATENT AND INTACT IN LEFT HAND, DENIES PAIN, MEDICATED X'S ONE FOR C/O INSOMNIA,HAS DRY HACKEY COUGH, RESTED QUIETLY DURING THE SHIFT.
[2020-01-16] MEDS: methylPREDNISolone SOD SUCC/PF 62.5 MG/ML VIAL IVP SCH ×3 (06:20→22:54)
--- NOTE | 2020-01-16 07:20 | NUR ---
RECEIVED BEDSIDE REPORT, PATIENT IN BED, AAOX4 SKIN W/D TO TOUCH. IV SITE TO L HAND , 22 GAUGE. PATIENT VERBALIZES NO C/O PAIN OR DISCOMFORT. NO SOB NOTED.
[2020-01-16] MEDS: BUDESONIDE 0.5 MG/2 ML AMPUL.NEB INH SCH ×2 (07:24→19:44)
[2020-01-16 08:15] VITALS: BP_SYST 136
[2020-01-16] MEDS: FAMOTIDINE 20 MG TABLET PO SCH (09:49)
[2020-01-16] MEDS: ENOXAPARIN SODIUM 40 MG/0.4 ML SYRINGE SUBCUT SCH (09:50)
[2020-01-16] MEDS: LEVOFLOXACIN 250 MG/D5W 50 ML IV SCH (11:41)
[2020-01-16 12:38] VITALS: BP_SYST 136
--- NOTE | 2020-01-16 12:55 | NUR ---
PATIENT ATE WELL FOR BREAKFAST AND LUNCH. AM MEDS GIVEN. @ 1050 LUNGS AUSC. W/ BILATERAL CRACKLES, AND RHONCHI TO ALL LUNG TRINH W/ MOIST COUGH W/ DEEP BREATHES; PATIENT VERBALIZES FEELING SLIGHTLY SOB. NO RESP. DISTRESS NOTED, PATIENT ENCOURAGED TO HAVE RESP TX OOB TO CHAIR DURING THE DAY, NEXT Tx DUE AT 1100 AM; PATIENT ALSO ENCOURAGED TO BE OOB AND AMBULATE SHORT DISTANCE IN SINGH TO OPEN AIRWAY. PATIENT IS MORBID OBESE AT 24, PATIENT EDUCATION DONE ON WT, DIET AND CAUSTIC ENVIRONMENT[employer] IRRITANTS. ENCOURAGED TO CHANGE DIET AND EXERCISE TO HELP IMPROVE RESP STATUS, AND TO CONT. WITH NO SMOKING STATUS. PATIENT VERBALIZED UNDERSTANDING AND AGREED TO TRY PUTTING IN THE WORK.
--- NOTE | 2020-01-16 14:21 | NUR ---
DC Planning: updated and faxed clinical info to [facility] fax# [phone], tel # [phone]. Per dr. Pace, DCP if cleared by [facility].
[2020-01-16 16:00] VITALS: BP_SYST 131
--- NOTE | 2020-01-16 16:00 | NUR ---
ON ROUNDS PATIENT ASLEEP, VOICES NO C/O PAIN OR DISCOMFORT. NO S/S OF SOB NOTED. PT OOB TO CHAIR W/ DAYTIME REST TREATMENTS PER TEACHING DONE EARLIER.
[2020-01-16] MEDS: MONTELUKAST 10 MG TABLET PO SCH (18:59)
--- NOTE | 2020-01-16 19:25 | NUR ---
REPORT TO 7PM RN . AT PRESENT PATIENT AAOX4, SITTING ON BED, W/ FEET DANGLING. NO S/S OF DISTRESS NOTED.
[2020-01-16 20:05] VITALS: BP_SYST 140
--- NOTE | 2020-01-16 20:05 | NUR ---
Opening notes Pt AAOx4, VSS, afebrile. Pt having breathing txmt at this time. No c/o pain or sob. IV saline lock L. AC 22G clear and patent. Call light/items within easy reach. Safety maintained. To monitor.
--- NOTE | 2020-01-16 23:50 | NUR ---
Rounds Pt alert and awake, no s/s sob. VSS, afebrile. Pt awaiting breathing treatment. Call light within reach. To monitor.
[2020-01-17] VITALS: BP_SYST 137
[2020-01-17] MEDS: ALBUTEROL SULFATE 0.083% 2.5 MG/3 ML VIAL.NEB INH SCH ×4 (04:11→15:31)
[2020-01-17] MEDS: IPRATROPIUM BROM 0.5 MG/2.5 ML VIAL.NEB (ATROVENT) INH SCH ×4 (04:11→15:31)
[2020-01-17] MEDS: methylPREDNISolone SOD SUCC/PF 62.5 MG/ML VIAL IVP SCH (06:40)
--- NOTE | 2020-01-17 06:43 | NUR ---
Closing notes Pt asleep, easily arousable. No s/s distress noted. IV saline lock L hand clear and patent. Pt denies any pain or sob. Call light within reaech. Safety maintained. To endorse to AM nurse.
--- NOTE | 2020-01-17 07:20 | NUR ---
AM ROUNDS: PATIENT AWAKE DURING ROUNDS.IV SALINE LOCK AT LEFT ARM INTACT. CALL LIGHT WITH IN REACH. BED LOCKED AT LOWEST POSITION. NO DISTRESS.
[2020-01-17] MEDS: BUDESONIDE 0.5 MG/2 ML AMPUL.NEB INH SCH (07:53)
[2020-01-17 08:49] VITALS: BP_SYST 127
[2020-01-17] MEDS: FAMOTIDINE 20 MG TABLET PO SCH (09:17)
[2020-01-17] MEDS: ENOXAPARIN SODIUM 40 MG/0.4 ML SYRINGE SUBCUT SCH (09:18)
[2020-01-17] MEDS ORDERED: ALBMDI INH (09:29)
[2020-01-17] MEDS ORDERED: MONT10TA25 PO (09:29)
[2020-01-17] MEDS ORDERED: AZIT250T PO (09:29)
[2020-01-17] MEDS ORDERED: BUDE6HFA INH (09:29)
[2020-01-17] MEDS ORDERED: MED4 PO (09:29)
--- NOTE | 2020-01-17 10:30 | NUR ---
BRP: PATIENT AMBULATES TO THE TOILET WITH STEADY GAIT. NO WHEEZING NOTED.
[2020-01-17 11:45] VITALS: BP_SYST 137
[2020-01-17] MEDS: LEVOFLOXACIN 250 MG/D5W 50 ML IV SCH (12:03)
--- NOTE | 2020-01-17 14:25 | NUR ---
RN ROUNDS: FAMILY AT THE BEDSIDE. RESTING.
[2020-01-17 15:43] VITALS: BP_SYST 128
[2020-01-17 16:00] VITALS: BP_SYST 128
--- NOTE | 2020-01-17 16:54 | NUR ---
D/C Patient Patient given medication reconciliation form and D/C instructions. Exit Care provided. Patient verbalized understanding. MD discussed with patient the results and treatment provided. Ambulatory with steady gait for discharge to home. Patient in stable condition, ID band removed. IV catheter removed, intact and dressing applied, no active bleeding. E-script sent to [facility] by .Charlenefed and spoke with SHILPI that prescriptions received. Patient educated on pain management. All belongings sent with patient.
== END 2020-01-17 16:50 | disposition home or self-care (01) | DRG 202 ==
LOC: SED 02:55 → STU 06:45 → SMU 01-14 17:33
PROVIDERS: ADMIT Internal Medicine Hospice and Palliative Medicine; ATTEND Internal Medicine Hospice and Palliative Medicine
DX: J45.901 Unspecified asthma with (acute) exacerbation (principal); Z68.43 Body mass index [BMI] 50.0-59.9, adult; E66.01 Morbid (severe) obesity due to excess calories; J06.9 Acute upper respiratory infection, unspecified; J20.9 Acute bronchitis, unspecified; J42 Unspecified chronic bronchitis; Z87.01 Personal history of pneumonia (recurrent); Z82.5 Family history of asthma and other chronic lower respiratory diseases; Z88.8 Allergy status to other drugs, medicaments and biological substances; Z88.1 Allergy status to other antibiotic agents; Z91.018 Allergy to other foods
CPT/HCPCS: 36415; 71046-TC; 80053; 83605; 83880; 84484; 85025; 85379; 86710; 93005; 94640; 94760; 99285; G0378; G9035; J1650; J1956; J2930; J7512; J7613; J7620; J7626

== ENCOUNTER 2024-05-20 10:47 | Emergency (ER) | payer BC ==
[~2024-05-20] VITALS: Ht 177.8 cm; Wt 149.7 kg
[~2024-05-20 10:47] MED LIST changes: -BUDE0.5A IH; +BUDE6HFA INH; -LEVO250T2 PO; +MED4 PO; -MEDROL PACK PO; +MONT-40 PO; -MONT10TA25 PO; +ZIT250 PO
[2024-05-20 11:04] VITALS: BP_SYST 124; PULSE 85; RESP 17; TEMP 97.8; O2SAT 96
[2024-05-20 11:37] LABS: COVID19 ANTIGEN SOFIA FIA NEGATIVE (NEGATIVE)
[2024-05-20 11:38] LABS: INFLUENZA TYPE A Negative (NEGATIVE); INFLUENZA TYPE B NEGATIVE (NEGATIVE)
[2024-05-20] MEDS ORDERED: BROM118S61 PO (12:22)
[2024-05-20 12:25] VITALS: BP_SYST 124; PULSE 85; RESP 17; TEMP 97.8; O2SAT 96
[2024-05-20] MEDS ORDERED: NEO/5DRO3 RIGHT EYE (12:25)
== END 2024-05-20 12:32 | disposition home or self-care (01) ==
LOC: SED 10:47
DX: J06.9 Acute upper respiratory infection, unspecified (principal); B97.89 Other viral agents as the cause of diseases classified elsewhere; Z20.822 Contact with and (suspected) exposure to COVID-19; J45.909 Unspecified asthma, uncomplicated; E11.9 Type 2 diabetes mellitus without complications; Z88.1 Allergy status to other antibiotic agents; Z91.018 Allergy to other foods; Z79.899 Other long term (current) drug therapy; Z79.2 Long term (current) use of antibiotics
CPT/HCPCS: 36415; 71045; 99284